=== PATIENT | female | born 1955 ===

== ENCOUNTER 2017-03-04 17:48 | Emergency (ER) | payer MEDICAID ==
[~2017-03-04] VITALS: Ht 157.5 cm; Wt 77.6 kg
[2017-03-04] MEDS ORDERED: IV NORMAL SALINE 1000 ML BAG IV ONE ×2 (18:45→20:15)
[2017-03-04] MEDS ORDERED: HYDROMORPHONE 1 MG/1 ML DISP.SYRIN IV ONE ×2 (18:45→20:15)
[2017-03-04] MEDS ORDERED: ONDANSETRON 4 MG/2 ML VIAL IV ONE ×2 (18:45→20:15)
[2017-03-04 18:47] LABS: CREATININE 0.9 mg/dL (0.6-1.3); POTASSIUM 4.6 mmol/L (3.5-5.1)
[2017-03-04 18:53] LABS: BASOPHILS % (AUTO) 0.6 % (0.0-2.0); EOSINOPHILS # (AUTO) 0.3 K/uL (0.0-0.7); EOSINOPHILS % (AUTO) 4.2 % (0.0-7.0); HEMATOCRIT 44.2 % (37-47); HEMOGLOBIN 14.5 G/DL (12.0-16.0); LYMPHOCYTES # (AUTO) 2.7 K/UL (0.8-4.8); LYMPHOCYTES % (AUTO) 38.4 % (20.5-51.5); MEAN CORPUSCULAR HEMOGLOBIN 31.6 UUG (27.0-31.0); MEAN CORPUSCULAR HGB CONC 33 g/dL (32.0-37.0); MEAN CORPUSCULAR VOLUME 96.3 FL (81.0-99.0); MONOCYTES # (AUTO) 0.5 K/UL (0.1-1.30); MONOCYTES % (AUTO) 7.2 % (0.0-11.0); NEUTROPHILS # (AUTO) 3.5 K/UL (1.8-8.9); NEUTROPHILS % (AUTO) 49.6 % (38.5-71.5); PLATELET COUNT (AUTO) 155 K/UL (150-450); RED BLOOD CELL COUNT(AUTO) 4.59 MIL/UL (4.2-5.4)
[2017-03-04 18:58] LABS: BILIRUBIN,DIRECT 0.1 mg/dL (0.0-0.2); BILIRUBIN,TOTAL 0.3 mg/dL (0.2-1.0); TOTAL PROTEIN, SERUM 8.2 g/dL (6.4-8.2)
[2017-03-04] MEDS ORDERED: DULO30CA2 PO (19:01)
[2017-03-04] MEDS ORDERED: METF500T4 PO (19:01)
[2017-03-04] MEDS ORDERED: PROP20TA7 PO (19:01)
[2017-03-04] MEDS ORDERED: SIME80TA15 PO (19:01)
[2017-03-04] MEDS ORDERED: HYDROMORPHONE 1 MG/1 ML DISP.SYRIN ONE ×2 (19:01→20:30)
[2017-03-04] MEDS ORDERED: GABA-534 PO (19:01)
[2017-03-04] MEDS ORDERED: ONDANSETRON 4 MG/2 ML VIAL ONE ×2 (19:01→20:30)
[2017-03-04] MEDS ORDERED: PRAV40TA3 PO (19:01)
[2017-03-04] MEDS ORDERED: TRAZ-147 PO (19:01)
[2017-03-04] MEDS ORDERED: ONDA8TAB9 PO (19:01)
[2017-03-04] MEDS ORDERED: NORT10CA PO (19:01)
[2017-03-04] MEDS ORDERED: DOCU-141 PO (19:01)
[2017-03-04] MEDS ORDERED: MAGN400O6 PO (19:01)
--- NOTE | 2017-03-04 19:20 | NUR ---
RECEIVED REPORT FROM JAHAIRA, NURSE, PT ALERT, ORIENTED X 4, NO RESP DISTRESS NOTED OR REPORTED UPON ASSESSMENT... WILL MONITOR FOR PAIN, COMFORT, AND SAFETY...
--- NOTE | 2017-03-04 21:58 | NUR ---
Patient discharged to home in stable conditon. Written and verbal after care instructions given. Patient verbalizes understanding of instructions. Pt walked out of ER unassisted with belongings at side...
[2017-03-04 21:59] VITALS: BP 149/97
== END 2017-03-04 22:07 | disposition home or self-care (01) ==
LOC: ER 17:48
DX: R10.84 Generalized abdominal pain (principal); R11.2 Nausea with vomiting, unspecified; D69.6 Thrombocytopenia, unspecified; I70.0 Atherosclerosis of aorta; Z88.0 Allergy status to penicillin; Z88.2 Allergy status to sulfonamides; Z79.899 Other long term (current) drug therapy
CPT/HCPCS: 36415; 70030-TC; 71010; 83605; 83690; 85025; 85730; 86850; 86900; 86901; 87040; 93005; A4663; J1170; J2405; J7030